=== PATIENT | female | born 1990 | race African-American/Black ===

== ENCOUNTER 2020-02-16 14:23 | Emergency (ER) | payer BC, SELFPAY ==
--- NOTE | ~2020-02-16 | CT_ITS ---
EXAMINATION: CT abdomen pelvis w con DATE: 02/16/2020 15:06 INDICATION: Generalized abdominal pain. TECHNIQUE: Computed tomography (CT) of the abdomen and pelvis was performed with 100 mL Omnipaque 350 intravenous contrast. Automated exposure control and iterative reconstruction technique were employe d. The dose-length product was 1527.55 mGy-cm. COMPARISON: None. FINDINGS: The visualized portions of the lung bases are clear without pneumonia or pleural effusion. The heart size is normal. No pericardial effusion. The liver, gallbladder, spleen, pancreas, adrenal glands, and kidneys are normal. There are no dilated loops of bowel. The appendix is normal. There ar e no pathologically enlarged lymph nodes. There is no free intraperitoneal fluid. There is mild thora columbar spondylosis. IMPRESSION: 1. No etiology for the patient's symptoms. Reviewed, dictated and finalized at location A.
[2020-02-16 14:27] VITALS: BP 101/76; PULSE 96; RESP 18; TEMP 36.6; O2SAT 100
--- NOTE | 2020-02-16 14:41 | ED.GENADULT ---
HPI - General Adult General Chief complaint: Abdominal Pain Stated complaint: abd pain Time Seen by Provider: 02/16/20 14:26 Source: patient History of Present Illness HPI narrative: Patient is a 30 y/o female complaining of intermittent right sided abdominal pain for 3-4 months. She states that her pain is sharp and rates it as 10/10. She was prescribed Miralax and Docusate, neither of which helped. Her pain radiates to left side sometimes. She has some nausea, but no vomiting or diarrhea. She has some diarrhea. Related Data Allergies Allergy/AdvReac Type Severity Reaction Status Date / Time aspirin Allergy Intermediate Itching Verified 02/16/20 14:25 acetaminophen Allergy Unknown Unknown Verified 02/16/20 14:25 Penicillins AdvReac Mild Unknown Verified 02/16/20 14:25 Review of Systems Constitutional: Constitutional: Denies chills, Denies fever(s), Denies headache(s) and Denies weakness Eyes: Eyes: Denies blurry vision ENT: Denies headache(s) and Denies neck pain Cardiovascular: Cardiovascular: Denies chest pain and Denies dyspnea Respiratory: Respiratory: Denies cough and Denies dyspnea Gastrointestinal: Gastrointestinal: Reports abdominal pain, Reports constipation, Denies diarrhea, Denies nausea and Denies vomiting Genitourinary: Genitourinary: Denies hematuria and Denies dysuria Musculoskeletal: Musculoskeletal: Denies back pain and Denies neck pain Neurologic: Denies headache(s) and Denies weakness [facility] Social History Social History Gender identity (if verbalized by the patient): Female Exam Const: General: no acute distress and well developed Orientation/consciousness: oriented to person, oriented to place, oriented to time and patient oriented x3 HENMT: Head: normocephalic Ears: external ears normal General nose exam: Normal external nose present Eyes: General: appearance normal, both eyes and all related structures Conjunctivae: conjunctivae normal Neck: Neck: normal visual inspection and full ROM Chest: Chest palpation & inspection: normal inspection of the chest and no tenderness Resp: Effort & Inspection: normal respiratory effort Auscultation: clear to auscultation bilaterally Cardio: Rate: regular rate Rhythm: regular rhythm GI: GI Palp: No abdominal tenderness and Yes Soft to palpation Skin: General skin exam: normal color and turgor normal Neuro: General: oriented to person, oriented to place, oriented to time and patient oriented x3 Cognition (Neuro): normal cognition Extrem: General: normal to inspection, full ROM and no pedal edema Psych: Appearance: grossly normal Mental Status: mental status grossly normal Affect: normal affect Course Vital Signs Vital signs: Vital Signs Temperature 36.6 C 02/16/20 14:27 Pulse Rate 96 02/16/20 14:27 Respiratory Rate 18 02/16/20 14:27 Blood Pressure 101/76 02/16/20 14:27 Pulse Oximetry 100 02/16/20 14:27 Temperature 36.6 C 02/16/20 14:27 Pulse Rate 88 02/16/20 15:56 Respiratory Rate 18 02/16/20 15:56 Blood Pressure 140/94 H 02/16/20 15:56 Pulse Oximetry 98 02/16/20 15:56 Medical Decision Making Vital Signs Vital Signs: Vital Signs Temperature 36.6 C 02/16/20 14:27 Pulse Rate 96 02/16/20 14:27 Respiratory Rate 18 02/16/20 14:27 Blood Pressure 101/76 02/16/20 14:27 Pulse Oximetry 100 02/16/20 14:27 Temperature 36.6 C 02/16/20 14:27 Pulse Rate 88 02/16/20 15:56 Respiratory Rate 18 02/16/20 15:56 Blood Pressure 140/94 H 02/16/20 15:56 Pulse Oximetry 98 02/16/20 15:56 Lab Data Result diagrams: 02/16/20 14:45 02/16/20 15:00 Labs: Lab Results 02/16/20 02/16/20 02/16/20 Range/Units 14:37 14:45 14:45 WBC 4.9 (4.5-10.0) K/mm3 RBC 4.41 (4.2-5.4) M/mm3 Hgb 12.3 (12.0-15.0) g/dL Hct 38.1 (37.0-47.0) % MCV 86.4 (80-100) fl MCH 27.9 (26-34)
[2020-02-16 14:52] LABS: Add Urine Microscopic? YES; Appearance Urine Cloudy (Clear); Bacteria Urine Trace /hpf; Bilirubin Urine Negative (Negative); Blood Urine Negative (Negative); Color Urine Yellow (Yellow); Glucose Urine UA Negative (Negative); Ketones Urine Trace mg/dL (Negative); Leukocyte Esterase Ur 1+ LEU/UL (Negative); Mucus Urine Heavy /lpf; Nitrate Urine Negative (Negative); Protein Urine 2+ mg/dL (Negative); Specific Grav Ur 1.029 (1.001-1.035); Squamous Epithelial Cell Urine Many /hpf (Few)
[2020-02-16 14:52] LABS: Basophils Percent Auto 0.8 % (0.2-1.2); Eosinophils Absolute Auto 0.1 K/mm3 (0-0.3); Eosinophils Percent Auto 1.2 % (0-4.4); Hematocrit 38.1 % (37.0-47.0); Hemoglobin 12.3 g/dL (12.0-15.0); Immature Granulocyte Absolute 0.01 K/mm3 (0.00-0.031); Immature Granulocyte Percent A 0.2 % (0-0.5); Lymphocytes Absolute Auto 2.24 K/mm3 (0.9-3.2); Lymphocytes Percent Auto 46.1 % (18.3-44.2); Mean Corpuscular HGB Conc 32.3 g/dl (32-36); Mean Corpuscular Hemoglobin 27.9 pg (26-34); Mean Corpuscular Volume 86.4 fl (80-100); Mean Platelet Volume 11.1 fl (7.4-10.4); Monocytes Absolute Auto 0.4 K/mm3 (0.1-0.6); Monocytes Percent Auto 7.2 % (2.6-8.5); Neutrophils Absolute Auto 2.2 K/mm3 (1.3-6.7); Neutrophils Percent Auto 44.5 % (45.5-73.1); Platelet Count Result 276 k/mm3 (150-375); Red Blood Count 4.41 M/mm3 (4.2-5.4); Red Cell Distribution Width 13.3 % (11.5-14.5); White Blood Count 4.9 K/mm3 (4.5-10.0)
[2020-02-16 15:01] LABS: Estimated CRCL calculation 138 ml/min; Estimated Glomerular Filt Rate > 60
[2020-02-16 15:03] LABS: Alanine Aminotransferase 20 U/L (4-35); Albumin Level 3.9 g/dL (3.5-5.1); Alkaline Phosphatase 60 U/L (38-126); Anion Gap 6 mmol/L (8-16); Aspartate Amino Transferase 21 U/L (14-36); Bilirubin,Total 0.4 mg/dL (0.2-1.3); Blood Urea Nitrogen 8 mg/dL (7-17); Carbon Dioxide 29 mmol/L (22-30); Chloride 102 mmol/L (98-107); Estimated CRCL calculation 138 ml/min; Estimated Glomerular Filt Rate > 60; Glucose 104 mg/dL (65-105); Lipase 105 U/L (23-300); Potassium 3.2 mmol/L (3.4-5.0); Sodium 137 mmol/L (137-145)
[2020-02-16] MEDS: POTASSIUM CHLORIDE 20 MEQ TABLET PO (15:49)
[2020-02-16 15:56] VITALS: BP 140/94; PULSE 88; RESP 18; O2SAT 98
== END 2020-02-16 16:37 | disposition home or self-care (01) ==
PROVIDERS: Emergency Medicine; Emergency Provider Emergency Medicine; PCP Nurse Practitioner Gerontology
DX: R10.84 Generalized abdominal pain (principal)
CPT/HCPCS: 36415; 74177; 80053; 81001; 81025; 83690; 85025; 99284; A9270; Q9967

== ENCOUNTER 2020-02-21 22:16 | Emergency (ER) | payer BC, SELFPAY ==
[2020-02-21 22:17] VITALS: BP 145/86; PULSE 80; RESP 20; TEMP 36.7; O2SAT 100
[2020-02-21 22:49] LABS: Basophils Percent Auto 0.6 % (0.2-1.2); Eosinophils Absolute Auto 0.1 K/mm3 (0-0.3); Eosinophils Percent Auto 1.4 % (0-4.4); Hematocrit 37.7 % (37.0-47.0); Hemoglobin 12.2 g/dL (12.0-15.0); Immature Granulocyte Absolute 0.01 K/mm3 (0.00-0.031); Immature Granulocyte Percent A 0.2 % (0-0.5); Lymphocytes Absolute Auto 1.84 K/mm3 (0.9-3.2); Lymphocytes Percent Auto 37.8 % (18.3-44.2); Mean Corpuscular HGB Conc 32.4 g/dl (32-36); Mean Corpuscular Hemoglobin 27.9 pg (26-34); Mean Corpuscular Volume 86.1 fl (80-100); Mean Platelet Volume 11.7 fl (7.4-10.4); Monocytes Absolute Auto 0.4 K/mm3 (0.1-0.6); Monocytes Percent Auto 7.4 % (2.6-8.5); Neutrophils Absolute Auto 2.6 K/mm3 (1.3-6.7); Neutrophils Percent Auto 52.6 % (45.5-73.1); Platelet Count Result 277 k/mm3 (150-375); Red Blood Count 4.38 M/mm3 (4.2-5.4); Red Cell Distribution Width 13.4 % (11.5-14.5); White Blood Count 4.9 K/mm3 (4.5-10.0)
[2020-02-21 22:56] LABS: Add Urine Microscopic? YES; Appearance Urine Cloudy (Clear); Bacteria Urine Trace /hpf; Bilirubin Urine 2+ (Negative); Blood Urine Negative (Negative); Color Urine Amber (Yellow); Glucose Urine UA Negative (Negative); Ketones Urine 1+ mg/dL (Negative); Leukocyte Esterase Ur 2+ LEU/UL (Negative); Mucus Urine Heavy /lpf; Nitrate Urine Negative (Negative); Protein Urine 2+ mg/dL (Negative); RBC Urine 0-2 /hpf (0-2); Squamous Epithelial Cell Urine Many /hpf (Few)
--- NOTE | 2020-02-21 22:56 | ED.GENADULT ---
HPI - General Adult General Chief complaint: Unspecified Stated complaint: scratchy throat Time Seen by Provider: 02/21/20 22:24 Source: patient Mode of arrival: ambulatory Limitations: no limitations History of Present Illness HPI narrative: 29 years old -[place]i female, morbidly obese presents with scratchy throat, right pelvic pain, weird taste in the mouth. Started 2 days ago. Patient denies any fever, chills, nausea, vomiting, headache, body ache, diarrhea, vaginal bleeding or discharge, or urinary symptoms. Patient also denies any vaginal bleeding or discharge. Patient sexually active, last menstrual period January 17. Patient reports a history of anxiety and depression, does not work, have a child. Denies smoking, drinking or using drugs. Patient denies history of abdominal surgery. Related Data Allergies Allergy/AdvReac Type Severity Reaction Status Date / Time aspirin Allergy Intermediate Itching Verified 02/21/20 22:20 acetaminophen Allergy Unknown Unknown Verified 02/21/20 22:20 Penicillins AdvReac Mild Unknown Verified 02/21/20 22:20 Review of Systems Review of Systems: Narrative: CONSTITUTIONAL: Denies fever, chills, or sweats. EYES: Denies visual changes, redness, or discharge. ENT: Denies rhinorrhea, congestion, sore throat, or otalgia. CARDIOVASCULAR: Denies chest pain, palpitations, or edema. RESPIRATORY: Denies cough or dyspnea. GASTROINTESTINAL: Denies abdominal pain, nausea, vomiting, or diarrhea. GENITOURINARY: Denies dysuria or hematuria. SKIN: Denies rash or itching. MUSCULOSKELETAL: Denies back pain, joint pain, or myalgia. NEUROLOGIC: Denies headache, numbness, or weakness. PSYCHIATRIC: Denies anxiety or depression. PMFSH Past Medical History Medical History (Updated 02/21/20 @ 23:17 by Bari Delgado MD) Depression Social History Social History (Updated 02/21/20 @ 22:59 by Bari Delgado MD) Second hand tobacco smoke exposure: No Gender identity (if verbalized by the patient): Female Exam Narrative: Exam Narrative: General appearance: Well-developed, well-nourished. , using her smart phone, does not look in pain or distress. No family member at the bedside Skin: Normal color Head: Normocephalic, nontraumatic Eyes: Clear conjunctiva ENT: Oropharynx normal, ears normal, nose normal Neck: Supple, nontender Chest and respiratory: Airway patent, no respiratory distress, no accessory muscle use Heart: Regular rate/rhythm Abdomen: Soft, mild tenderness right lower quadrant, no guarding or rebound r, no organomegaly, quiet bowel sounds Vascular: Normal peripheral pulses, normal capillary refill. Musculoskeletal: Normal range of motion, nontender back Neurologic: Alert and oriented ?3, GTA is normal as tested, no gross motor deficit Course Course Emergency Course: Stable Vital Signs Vital signs: Vital Signs Temperature 36.7 C 02/21/20 22:17 Pulse Rate 80 02/21/20 22:17 Respiratory Rate 02/21/20 22:17 Blood Pressure 145/86 H 02/21/20 22:17 Pulse Oximetry 100 02/21/20 22:17 Temperature 36.7 C 02/21/20 22:17 Pulse Rate 80 02/21/20 22:17 Respiratory Rate 02/21/20 22:17 Blood Pressure 145/86 H 02/21/20 22:17 Pulse Oximetry 100 02/21/20 22:17 Medical Decision Making [facility] Narrative Medical decision making narrative: Patient presents with scratchy throat, abdominal pain and weird taste in the mouth. Patient symptoms are not specific. The plan to get labs, UA, rapid strep,. Further plan to follow. Patient denies exposure to anybody with known COVID-19. Blood work-up and urine analysis showed no acute abnormality. Anxiety, depression are high likely underlying cause
[2020-02-21 23:01] LABS: Specific Grav Ur 1.035 (1.001-1.035)
[2020-02-21 23:02] LABS: Alanine Aminotransferase 21 U/L (4-35); Alkaline Phosphatase 56 U/L (38-126); Anion Gap 9 mmol/L (8-16); Aspartate Amino Transferase 30 U/L (14-36); Bilirubin,Total 0.6 mg/dL (0.2-1.3); Blood Urea Nitrogen 10 mg/dL (7-17); Calcium 9.2 mg/dL (8.4-10.2); Carbon Dioxide 26 mmol/L (22-30); Chloride 103 mmol/L (98-107); Estimated CRCL calculation 138 ml/min; Estimated Glomerular Filt Rate > 60; Glucose 91 mg/dL (65-105); Sodium 138 mmol/L (137-145)
[2020-02-21 23:28] VITALS: BP 134/72; PULSE 78; RESP 17; O2SAT 100
== END 2020-02-21 23:29 | disposition home or self-care (01) ==
PROVIDERS: Emergency Provider Emergency Medicine; PCP Physician Assistant
DX: R10.31 Right lower quadrant pain (principal); F32.9 Major depressive disorder, single episode, unspecified
CPT/HCPCS: 80053; 81001; 81025; 85025; 87081; 87086; 87088; 87880; 99283

== ENCOUNTER 2020-08-27 15:55 | Emergency (ER) | payer BC, SELFPAY ==
--- NOTE | ~2020-08-27 | XR_ITS ---
EXAMINATION: XR chest 2V EXAM DATE: 08/27/2020 16:55 INDICATION: Dizziness, headaches. Symptoms worse today. TECHNIQUE: Frontal and lateral projections of the chest obtained and reviewed. Comparison is made to prior examination from 05/05/2016. FINDINGS: The lungs are clear. There are no pleural effusions. The cardiomediastinal silhouette is within normal limits. There is no pneumothorax suspected. The bones and soft tissues are unremarkab le. IMPRESSION: No acute cardiopulmonary findings. Reviewed, dictated and finalized at location A.
--- NOTE | 2020-08-27 16:15 | ECG_ITS ---
Measurements Intervals [place] Rate: 82 P: 32 NE: 157 QRS: 47 QRSD: 86 T: 16 QT: 363 QTc: 424 Interpretive Statements SINUS RHYTHM BORDERLINE T WAVE ABNORMALITY- ANTERIOR LEADS BASELINE ARTIFACT- I, II, AVR BORDERLINE ECG Electronically Signed On 08-27-2020 17:20:01 CDT by Lars Singh D.O.
--- NOTE | 2020-08-27 16:23 | ED.DIZZY ---
HPI - Dizziness General Chief Complaint: Dizziness Stated Complaint: Dizzy, Headache Time Seen by Provider: 08/27/20 16:09 Source: patient Mode of arrival: ambulatory Limitations: no limitations History of Present Illness HPI Narrative: This is a 29-year-old female that presents to the emergency department for episodes of dizziness x 5 days. Reports it as the room is spinning. She had an episode over the weekend. She also does feel mildly dizzy today which prompted her to be seen. She has been having trouble with headaches as well. She has not taken anything for her symptoms. Denies fever, stiff neck, chest pain, shortness of breath, lower extremity edema, vision changes, vomiting, numbness, or weakness. Related Data Allergies Allergy/AdvReac Type Severity Reaction Status Date / Time aspirin Allergy Intermediate Itching Verified 02/21/20 22:20 acetaminophen Allergy Unknown Unknown Verified 02/21/20 22:20 Penicillins AdvReac Mild Unknown Verified 02/21/20 22:20 Review of Systems Review of Systems: All systems reviewed & are unremarkable except as noted in HPI and below Constitutional: Constitutional: Denies fever(s) Eyes: Eyes: Denies change in vision ENT: Reports dizziness and Denies nasal congestion Cardiovascular: Cardiovascular: Denies chest pain Respiratory: Respiratory: Denies cough and Denies dyspnea Gastrointestinal: Gastrointestinal: Denies vomiting Neurologic: Reports headache(s), Denies focal weakness and Denies numbness PMFSH Past Medical History Medical History (Updated 08/27/20 @ 17:59 by Xiomara Richard PA-C) Depression Social History Social History (Updated 08/27/20 @ 16:28 by Xiomara Richard PA-C) Second hand tobacco smoke exposure: No Substance use: never Gender identity (if verbalized by the patient): Female Exam Const: General: healthy appearing and no acute distress Nutritional Appearance: well nourished HENMT: Ears: TM's normal bilaterally Mouth: Yes moist mucous membranes Eyes: Pupils: Equal, round and reactive pupils present Resp: Auscultation: clear to auscultation bilaterally Cardio: Rate: regular rate Rhythm: regular rhythm Heart sounds: no murmurs Skin: General skin exam: normal color Rashes: no rashes Neuro: General: patient oriented x3, no focal motor deficits and CN's II-XI intact bilaterally Other: Normal [id number] Extrem: General: no pedal edema Other: Strength equal in bilateral upper and lower extremities (5/5) Psych: Affect: normal affect Thought content: Yes Normal thought content present Course Vital Signs Vital signs: Vital Signs Temperature 97.1 F L 08/27/20 16:26 Pulse Rate 93 08/27/20 16:26 Respiratory Rate 17 08/27/20 16:26 Blood Pressure 145/94 H 08/27/20 16:26 Pulse Oximetry 99 08/27/20 16:26 Temperature 97.1 F L 08/27/20 16:26 Pulse Rate 93 08/27/20 16:26 Respiratory Rate 17 08/27/20 16:26 Blood Pressure 145/94 H 08/27/20 16:26 Pulse Oximetry 99 08/27/20 16:26 MDM - Dizziness MDM Narrative Medical decision making narrative: Patient presents to the emergency department for headache and and dizziness. She is afebrile and nontoxic-appearing. She is neurologically intact. CBC with mild normocytic anemia with hemoglobin of 11.2. Metabolic panel without concerning findings. UA without evidence of infection. Bedside test is negative. Chest x-ray without acute findings. EKG without concerning changes. Patient reports improvement with IV fluids, reglan and meclizine. She is stable and felt appropriate for further outpatient evaluation. She was given warnings to return to the ER Lab Data Attestation: I reviewed the patient's lab results. Result diagrams: 08/27/20 16:31 08/27/20 16:31 Labs: Lab Results 08/27/20 08/27/20 08/27/20 Range/Units 16:31 16:31 17:05 WBC 5.7 (4.5-10.0) K/mm3 RBC 4.05 L (4.2-5.4) M/mm3 Hgb 11.2 L (12.0
[2020-08-27 16:26] VITALS: BP 145/94; PULSE 93; RESP 17; TEMP 36.2; O2SAT 99
[2020-08-27 16:37] LABS: Basophils Percent Auto 0.3 % (0.2-1.2); Eosinophils Absolute Auto 0.1 K/mm3 (0-0.3); Eosinophils Percent Auto 1.2 % (0-4.4); Hematocrit 35.3 % (37.0-47.0); Hemoglobin 11.2 g/dL (12.0-15.0); Immature Granulocyte Absolute 0.01 K/mm3 (0.00-0.031); Immature Granulocyte Percent A 0.2 % (0-0.5); Lymphocytes Absolute Auto 2.17 K/mm3 (0.9-3.2); Lymphocytes Percent Auto 37.9 % (18.3-44.2); Mean Corpuscular HGB Conc 31.7 g/dl (32-36); Mean Corpuscular Hemoglobin 27.7 pg (26-34); Mean Corpuscular Volume 87.2 fl (80-100); Mean Platelet Volume 10.1 fl (7.4-10.4); Monocytes Absolute Auto 0.4 K/mm3 (0.1-0.6); Monocytes Percent Auto 7.3 % (2.6-8.5); Neutrophils Percent Auto 53.1 % (45.5-73.1); Platelet Count Result 298 k/mm3 (150-375); Red Blood Count 4.05 M/mm3 (4.2-5.4); Red Cell Distribution Width 13.3 % (11.5-14.5); White Blood Count 5.7 K/mm3 (4.5-10.0)
[2020-08-27 16:49] LABS: Alanine Aminotransferase 14 U/L (4-35); Alkaline Phosphatase 93 U/L (38-126); Anion Gap 4 mmol/L (8-16); Aspartate Amino Transferase 20 U/L (14-36); Bilirubin,Total 0.1 mg/dL (0.2-1.3); Blood Urea Nitrogen 10 mg/dL (7-17); Calcium 8.6 mg/dL (8.4-10.2); Carbon Dioxide 30 mmol/L (22-30); Chloride 105 mmol/L (98-107); Estimated CRCL calculation 138 ml/min; Estimated Glomerular Filt Rate > 60; Glucose 100 mg/dL (65-105); Sodium 139 mmol/L (137-145)
[2020-08-27] MEDS: METOCLOPRAMIDE HCL INJ 10 MG/2 ML VIAL IV PUSH (17:04)
[2020-08-27] MEDS: diphenhydrAMINE HCl INJ 50 MG/ML VIAL 25 MG IV PUSH (17:04)
[2020-08-27] MEDS: SODIUM CHLORIDE 0.9% IV 1,000 ML 999 ML IV CONT (17:04)
[2020-08-27] MEDS: MECLIZINE HCL 25 MG TABLET PO (17:04)
[2020-08-27 17:14] LABS: Add Urine Microscopic? NO; Appearance Urine Clear (Clear); Bilirubin Urine Negative (Negative); Blood Urine Negative (Negative); Color Urine Yellow (Yellow); Glucose Urine UA Negative (Negative); Ketones Urine Negative (Negative); Leukocyte Esterase Ur Negative LEU/UL (Negative); Nitrate Urine Negative (Negative); Protein Urine Negative (Negative); Specific Grav Ur 1.018 (1.001-1.035); Urobilinogen Urine Negative mg/dL (<2.0)
[2020-08-27 18:17] VITALS: BP 132/68; PULSE 78; RESP 18; O2SAT 99
== END 2020-08-27 18:19 | disposition home or self-care (01) ==
PROVIDERS: Physician Assistant; Emergency Provider Emergency Medicine; PCP Physician Assistant
DX: R51.9 Headache, unspecified (principal); R94.31 Abnormal electrocardiogram [ECG] [EKG]
CPT/HCPCS: 36415; 71046; 80053; 81003; 81025; 85025; 93005; 96361; 96374; 96375; 99284; A9270; J1200; J2765; J7030

== ENCOUNTER 2020-11-03 13:22 | Emergency (ER) | payer BC, SELFPAY ==
[2020-11-03] VITALS (14 sets, daily range): BP systolic 116–135; BP diastolic 71–94; PULSE 70–86; RESP 12–20; TEMP 36.4; O2SAT 100
--- NOTE | ~2020-11-03 | XR_ITS ---
EXAMINATION: XR chest 2V EXAM DATE: 11/03/2020 13:57 INDICATION: Left-sided chest pain. TECHNIQUE: Frontal and lateral projections of the chest obtained and reviewed. Comparison is made to prior examination from 08/27/2020. FINDINGS: The lungs are clear. There are no pleural effusions. The cardiomediastinal silhouette is within normal limits. There is no pneumothorax suspected. The bones and soft tissues are unremarkab le. IMPRESSION: Normal chest x-ray exam. Reviewed, dictated and finalized at location A. IMPRESSION: Normal chest x-ray exam.
--- NOTE | 2020-11-03 13:26 | ECG_ITS ---
Measurements Intervals [place] Rate: 90 P: 31 [place]: 151 QRS: 49 QRSD: 86 T: -13 QT: 358 QTc: 440 Interpretive Statements SINUS RHYTHM NONSPECIFIC ST & T-WAVE ABNORMALITY- ANTEROLAT/INF LEADS BORDERLINE ECG Electronically Signed On 11-03-2020 19:07:16 CDT by Lars Singh D.O.
[2020-11-03 13:44] LABS: Basophils Percent Auto 0.4 % (0.2-1.2); Eosinophils Absolute Auto 0.1 K/mm3 (0-0.3); Eosinophils Percent Auto 1.2 % (0-4.4); Hemoglobin 11.8 g/dL (12.0-15.0); Immature Granulocyte Absolute 0.01 K/mm3 (0.00-0.031); Immature Granulocyte Percent A 0.2 % (0-0.5); Lymphocytes Absolute Auto 2.25 K/mm3 (0.9-3.2); Lymphocytes Percent Auto 45.7 % (18.3-44.2); Mean Corpuscular HGB Conc 31.1 g/dl (32-36); Mean Corpuscular Hemoglobin 27.3 pg (26-34); Mean Corpuscular Volume 87.8 fl (80-100); Mean Platelet Volume 10.1 fl (7.4-10.4); Monocytes Absolute Auto 0.4 K/mm3 (0.1-0.6); Monocytes Percent Auto 8.3 % (2.6-8.5); Neutrophils Absolute Auto 2.2 K/mm3 (1.3-6.7); Neutrophils Percent Auto 44.2 % (45.5-73.1); Platelet Count Result 301 k/mm3 (150-375); Red Blood Count 4.33 M/mm3 (4.2-5.4); Red Cell Distribution Width 13.5 % (11.5-14.5); White Blood Count 4.9 K/mm3 (4.5-10.0)
[2020-11-03 13:57] LABS: INR 0.9; Prothrombin Time 12.5 Seconds (11.1-14.7)
[2020-11-03 13:58] LABS: Partial Thromboplastin Time 30.3 SECONDS (22.3-36.8)
[2020-11-03 14:00] LABS: Anion Gap 6 mmol/L (8-16); Blood Urea Nitrogen 11 mg/dL (7-17); Calcium 9.4 mg/dL (8.4-10.2); Carbon Dioxide 28 mmol/L (22-30); Chloride 108 mmol/L (98-107); Estimated CRCL calculation 163 ml/min; Estimated Glomerular Filt Rate > 60; Glucose 89 mg/dL (65-105); Potassium 3.9 mmol/L (3.4-5.0); Sodium 142 mmol/L (137-145)
[2020-11-03 14:12] LABS: Troponin I < 0.012 ng/mL (0.000-0.034)
--- NOTE | 2020-11-03 14:29 | ED.CHESTPAIN ---
HPI - Chest Pain General Chief Complaint: Chest Pain Stated Complaint: Chest Pain,numbness l hand Time Seen by Provider: 11/03/20 13:43 Source: patient, family and RN notes reviewed Mode of arrival: ambulatory Limitations: no limitations History of Present Illness HPI narrative: Patient is a 29-year-old female who presents with left-sided chest pain that began today just prior to arrival by 30 minutes noting a sharp stabbing pain that was coming and going patient denies any similar occurrence in the past notes yesterday she had felt fine did not take anything for her symptoms. On arrival patient notes no discomfort and is resting comfortably in the room. Patient denies any cardiopulmonary disease or history Related Data Home Medications Medication Instructions Recorded Confirmed ferrous sulfate 325 mg (65 mg 325 mg PO DAILY 09/24/20 iron) tablet Allergies Allergy/AdvReac Type Severity Reaction Status Date / Time aspirin Allergy Intermediate Itching Verified 09/24/20 13:59 acetaminophen Allergy Unknown Unknown Verified 09/24/20 13:59 Penicillins AdvReac Mild Unknown Verified 09/24/20 13:59 Review of Systems Review of Systems: All systems reviewed & are unremarkable except as noted in HPI and below PMFSH Past Medical History Medical History (Updated 11/03/20 @ 16:51 by Khris Zhao PA-C) Depression Obesity Surgical History Surgical History S/P tonsillectomy Family History Family History Father Diabetes mellitus Hypertension Mother Asthma Depression Heart disease Social History Social History Smoking status: Never smoker Second hand tobacco smoke exposure: No Substance use: never Gender identity (if verbalized by the patient): Female Exam Narrative: Exam Narrative: GENERAL: Well-appearing, obese, and in no acute distress. HEAD: Normocephalic, atraumatic. EYES: PERRLA and EOMI. ENT: Nares clear, no rhinorrhea or epistaxis. Mucous membranes moist. CHEST: Clear to auscultation. No respiratory distress. No wheezes rales or rhonchi HEART: Regular rate and rhythm. No murmur heard. Normal peripheral pulses. ABDOMEN: Soft, nontender, nondistended EXTREMITIES: Normal range of motion. No edema. SKIN: Warm, dry, no rash. NEURO: No focal deficits. Alert and oriented x3. PSYCH: Normal mood and affect. Course Course Emergency Course: Patient in the room at this time no distress no high risk changes low risk chest pain score will be discharged home with further risk ratification on outpatient basis patient resting comfortably in no distress and agrees with this plan Vital Signs Vital signs: Vital Signs Temperature 97.6 F 11/03/20 13:31 Pulse Rate 86 11/03/20 13:31 Respiratory Rate 18 11/03/20 13:31 Blood Pressure 135/94 H 11/03/20 13:31 Pulse Oximetry 100 11/03/20 13:31 Temperature 97.6 F 11/03/20 13:31 Pulse Rate 70 11/03/20 15:10 Respiratory Rate 18 11/03/20 14:31 Blood Pressure 119/76 11/03/20 14:31 Pulse Oximetry 100 11/03/20 14:31 MDM - Chest Pain MDM Narrative Medical decision making narrative: Patients EKGs and labs are without significant high risk changes. Cardiac risk Factors were reviewed. Patient is felt likely to be low risk for ACS and reasonable for further risk stratification testing as an outpatient. Pain was not sudden or maximal in onset without tearing or ripping. quality. No other signs or symptoms to suggest aortic dissection. A low-risk Wells criteria is noted. PE is felt to be unlikely. No pneumonia or URI symptoms were seen on evaluation today. Patient is felt to b reasonable for continued evaluation as an outpatient. Lab Data Result diagrams: 11/03/20 13:38 11/03/20 13:38 Labs: Lab Results 11/03/20 11/03/20
[2020-11-03 16:50] LABS: Troponin I < 0.012 ng/mL (0.000-0.034)
== END 2020-11-03 17:04 | disposition home or self-care (01) ==
PROVIDERS: Emergency Provider Emergency Medicine; PCP Physician Assistant
DX: R07.9 Chest pain, unspecified (principal); E66.9 Obesity, unspecified; Z68.43 Body mass index [BMI] 50.0-59.9, adult; R94.31 Abnormal electrocardiogram [ECG] [EKG]
CPT/HCPCS: 36415; 71046; 80048; 84484; 85025; 85610; 85730; 93005; 99284

== ENCOUNTER 2021-02-12 10:42 | Outpatient (CLI) | payer BC, SELFPAY ==
[2021-02-12 12:18] LABS: HIV 1/2 Ab P24 Ag Result Negative (Negative)
[2021-02-12 12:49] LABS: Hepatitis C Virus Antibody Negative (Negative)
[2021-02-15 10:08] LABS: Rapid Plasma Reagin Non-Reactive (NonReactive)
[2021-02-17 03:37] LABS: Hepatitis Be Antigen Nonreactive
[2021-02-18 14:37] LABS: HSV 1 IgM Screen Negative (Negative); HSV 2 IgM Screen Negative (Negative)
== END 2021-02-12 10:43 | disposition home or self-care (01) ==
PROVIDERS: PCP Physician Assistant; Visit Provider Obstetrics & Gynecology
DX: Z11.3 Encounter for screening for infections with a predominantly sexual mode of transmission (principal)
CPT/HCPCS: 36415; 86592; 86695; 86696; 86703; 86803; 87350; G0432

== ENCOUNTER 2021-03-24 17:43 | Emergency (ER) | payer BC, SELFPAY ==
[2021-03-24 17:55] VITALS: BP 129/87; PULSE 83; RESP 16; TEMP 36.4; O2SAT 99
--- NOTE | 2021-03-24 18:35 | ED.GENADULT ---
HPI - General Adult General Chief complaint: Upper Respiratory Infection Stated complaint: congestion Source: patient Mode of arrival: ambulatory Limitations: no limitations History of Present Illness HPI narrative: Patient is a 30-year-old -[place] female presents to the [facility] via POV for evaluation of symptoms that began this morning. Additionally, she reports rhinorrhea, sore throat, and bilateral ear pain. Denies taking OTC meds for symptoms nothing improves or worsen symptoms. Patient reports that her is also here to be seen with similar signs and symptoms. She denies being fully vaccinated against Covid. She is requesting documentation for work absence. Related Data Home Medications Medication Instructions Recorded Confirmed No Home Medications 03/24/21 03/24/21 Allergies Allergy/AdvReac Type Severity Reaction Status Date / Time aspirin Allergy Intermediate Itching Verified 03/24/21 18:07 acetaminophen Allergy Unknown Unknown Verified 03/24/21 18:07 Penicillins AdvReac Mild Unknown Verified 03/24/21 18:07 feminine pads AdvReac Itching, Uncoded 03/24/21 18:07 redness, burning Review of Systems Review of Systems: Pertinent negatives: fever, chills, poor p.o. intake, myalgias, flu-like symptoms, ear drainage, tinnitus, vertigo, hearing difficulty, sinus trouble, headache, nasal congestion, lymphadenopathy, dizziness, LOC, inability to swallow, drooling, hoarseness, halitosis, abdominal pain, nausea, vomiting, diarrhea, cough, wheezing, sob, chest pain, heart murmurs, and heart palpations. PMFSH Past Medical History Medical History Depression HSV (herpes simplex virus) infection Type 1 Obesity Surgical History Surgical History S/P tonsillectomy Family History Family History Father Diabetes mellitus Hypertension Mother Asthma Depression Heart disease Social History Social History Smoking status: Never smoker Tobacco type: cigarettes Second hand tobacco smoke exposure: No Alcohol intake: current Alcohol use details: maybe occasional Substance use: never Gender identity (if verbalized by the patient): Female Comments I have reviewed and agree with the patient's past medical, surgical, social, and family hx as documented by the RN. There is no relevant family history pertinent to the presenting complaint. Exam Narrative: GENERAL: Well-appearing, well-nourished, and in no acute distress. HEAD: Normocephalic, atraumatic. No sinus tenderness or facial swelling appreciated. EYES: PERRLA and EOMI. No evidence of erythema, swelling, or drainage. ENT: Bilateral external ears and ear canals normal. Bilateral TMs are normal.No TM perforation. Nares clear, no rhinorrhea or epistaxis. Bilateral turbinates without erythema/ swelling. Mucous membranes moist and pink. Uvula is midline without erythema and swelling. Subtle erythema noted to bilateral tonsils. No evidence of petechial rash, cobblestoning, lesions, ulcers, swelling, exudates, peritonsillar abscess, tenting, or drooling. Breath odor and voice normal. NECK: Supple. No Lymphadenopathy or nuchal rigidity appreciated. CHEST: Bilateral lung cason are clear to auscultation. No respiratory distress. No evidence of cough or pleuritic cp upon examination. HEART: Regular rate and rhythm. No murmur, gallop, or rub heard. EXTREMITIES: Normal range of motion. No edema. SKIN: Warm, dry, no rash. NEURO: No focal deficits. Alert and oriented x3. Course Vital Signs Vital signs: Vital Signs Temperature 97.6 F 03/24/21 17:55 Pulse Rate 83 03/24/21 17:55 Respiratory Rate 16 03/24/21 17:55 Blood Pressure 129/87 03/24/21 17:55 Pulse Oximetry 99 03/24/21 17:5
== END 2021-03-24 18:45 | disposition home or self-care (01) ==
PROVIDERS: Emergency Provider Nurse Practitioner Family; PCP Physician Assistant
DX: J06.9 Acute upper respiratory infection, unspecified (principal); E66.9 Obesity, unspecified; Z68.42 Body mass index [BMI] 45.0-49.9, adult
CPT/HCPCS: 87081; 87880; 99213; G0463

== ENCOUNTER 2021-04-10 13:52 | Emergency (ER) | payer BC, SELFPAY ==
[2021-04-10 13:54] VITALS: BP 137/94; PULSE 85; RESP 16; TEMP 36.4; O2SAT 100
--- NOTE | 2021-04-10 14:33 | ED.DENTAL ---
HPI - Dental/Oral General Chief complaint: Dental/Oral Stated complaint: wisdom tooth pain Time Seen by Provider: 04/10/21 14:13 Source: patient Mode of arrival: ambulatory Limitations: no limitations History of Present Illness HPI Narrative: Patient presents for evaluation of right lower dental pain since yesterday. She has a history of recurrent pain in the affected area. She states that insurance problems have prevented her from pursuing a long-term solution for this. She states her current pain is 15 on a scale of 1-10, throbbing, without radicular component. No fever, chills, nausea, vomiting. She tried taking ibuprofen and gargling with salt water. Neither were extremely helpful. Last menstrual period yesterday. She has not been sexually active since that time. No additional complaints or concerns Related Data Allergies Allergy/AdvReac Type Severity Reaction Status Date / Time aspirin Allergy Intermediate Itching Verified 03/24/21 18:07 acetaminophen Allergy Unknown Unknown Verified 03/24/21 18:07 Penicillins AdvReac Mild Unknown Verified 03/24/21 18:07 feminine pads AdvReac Itching, Uncoded 03/24/21 18:07 redness, burning Review of Systems Review of Systems: CONSTITUTIONAL: Denies fever, chills, or sweats. EYES: Denies visual changes, redness, or discharge. ENT: Reports right lower dental pain. Denies rhinorrhea, congestion, sore throat, or otalgia. CARDIOVASCULAR: Denies chest pain, palpitations, or edema. RESPIRATORY: Denies cough or dyspnea. GASTROINTESTINAL: Denies abdominal pain, nausea, vomiting, or diarrhea. GENITOURINARY: Denies dysuria or hematuria. SKIN: Denies rash or itching. MUSCULOSKELETAL: Denies back pain, joint pain, or myalgia. NEUROLOGIC: Denies headache, numbness, dizziness, or weakness. PSYCHIATRIC: Denies anxiety or depression. [facility] Past Medical History Medical History (Updated 04/10/21 @ 14:39 by Gulshan Yan, CYNTHIA, ) Bronchitis Depression H/O drainage of abscess HSV (herpes simplex virus) infection Type 1 Obesity Surgical History Surgical History S/P tonsillectomy Family History Family History Father Diabetes mellitus Hypertension Mother Asthma Depression Heart disease Social History Social History Smoking status: Former smoker Tobacco type: cigarettes Second hand tobacco smoke exposure: No Alcohol intake: current Alcohol use details: maybe occasional Substance use: never Living arrangements: with family Gender identity (if verbalized by the patient): Female Sexual Orientation (if Verbalized by the Patient): Straight or Heterosexual Spiritual care concerns: No Exam Narrative: GENERAL: Well-appearing, well-nourished, and in no acute distress. HEAD: Normocephalic, atraumatic. EYES: PERRLA and EOMI. ENT: Right lower molar is fractured. There is no visible or palpable abscess. Nares clear, no rhinorrhea or epistaxis. Mucous membranes moist. Oropharynx without tonsillar hypertrophy exudate or other lesions. Bilateral TMs pearly tariq nonbulging NECK: Supple. No adenopathy or masses. No carotid bruits or JVD CHEST: Clear to auscultation. No respiratory distress. No wheezes rales or rhonchi HEART: Regular rate and rhythm. No murmur heard. Normal peripheral pulses. ABDOMEN: Soft, nontender, nondistended, normal active bowel sounds. EXTREMITIES: Normal range of motion. No edema. SKIN: Warm, dry, no rash. NEURO: No focal deficits. Alert and oriented x3. PSYCH: Normal mood and affect. Course Course Emergency Course: This is a 30-year-old female who presented with one day history of right lower dental pain. On exam she has a dental fracture without visible or palpable abscess. In the past she has not tolerated penicillins. Therefore we will
== END 2021-04-10 14:51 | disposition home or self-care (01) ==
PROVIDERS: Emergency Provider Nurse Practitioner; PCP Physician Assistant
DX: S02.5XXA Fracture of tooth (traumatic), initial encounter for closed fracture (principal); F32.A Depression, unspecified; E66.9 Obesity, unspecified; Z87.891 Personal history of nicotine dependence; Y33.XXXA Other specified events, undetermined intent, initial encounter
CPT/HCPCS: 99283

== ENCOUNTER 2021-08-08 23:45 | Emergency (ER) | payer BC, SELFPAY ==
[2021-08-08 23:53] VITALS: BP 149/89; PULSE 84; RESP 20; TEMP 36.3; O2SAT 100
--- NOTE | 2021-08-09 00:15 | ED.EYEPROB ---
HPI - Eye Problem General Chief complaint: Eye Problems Stated complaint: left eye irritation Time Seen by Provider: 08/09/21 00:05 History of Present Illness HPI Narrative: 30-year-old female presenting to emergency room with complaints of left eye irritation. Patient states she woke up this morning with a grainy feeling in her eye. Associated with blurred vision. Denies wearing contacts or glasses. Related Data Allergies Allergy/AdvReac Type Severity Reaction Status Date / Time aspirin Allergy Intermediate Itching Verified 08/08/21 23:46 acetaminophen Allergy Unknown Unknown Verified 08/08/21 23:46 Penicillins AdvReac Mild Unknown Verified 08/08/21 23:46 feminine pads AdvReac Itching, Uncoded 08/08/21 23:46 redness, burning Review of Systems Review of Systems: CONSTITUTIONAL: Denies fever, chills, or sweats. EYES: Reports clear drainage left eye. Reports blurred vision left eye ENT: Denies rhinorrhea, congestion, sore throat, or otalgia. CARDIOVASCULAR: Denies chest pain, palpitations, or edema. RESPIRATORY: Denies cough or dyspnea. GASTROINTESTINAL: Denies abdominal pain, nausea, vomiting, or diarrhea. GENITOURINARY: Denies dysuria or hematuria. SKIN: Denies rash or itching. MUSCULOSKELETAL: Denies back pain, joint pain, or myalgia. NEUROLOGIC: Denies headache, numbness, dizziness, or weakness. PSYCHIATRIC: Denies anxiety or depression. [facility] Past Medical History Medical History Bronchitis Depression H/O drainage of abscess HSV (herpes simplex virus) infection Type 1 Obesity Surgical History Surgical History S/P tonsillectomy Family History Family History Father Diabetes mellitus Hypertension Mother Asthma Depression Heart disease Social History Social History Smoking status: Former smoker Tobacco type: cigarettes Second hand tobacco smoke exposure: No Alcohol intake: current Alcohol use details: maybe occasional Substance use: never Gender identity (if verbalized by the patient): Female Sexual Orientation (if Verbalized by the Patient): Straight or Heterosexual Spiritual care concerns: No Exam Narrative: GENERAL: Well-appearing, well-nourished, and in no acute distress. HEAD: Normocephalic, atraumatic. EYES: PERRLA and EOMI. ENT: Nares clear, no rhinorrhea or epistaxis. Mucous membranes moist. Oropharynx without tonsillar hypertrophy exudate or other lesions. Bilateral TMs pearly tariq nonbulging NECK: Supple. No adenopathy or masses. No carotid bruits or JVD CHEST: Clear to auscultation. No respiratory distress. No wheezes rales or rhonchi HEART: Regular rate and rhythm. No murmur heard. Normal peripheral pulses. ABDOMEN: Soft, nontender, nondistended, normal active bowel sounds. EXTREMITIES: Normal range of motion. No edema. SKIN: Warm, dry, no rash. NEURO: No focal deficits. Alert and oriented x3. PSYCH: Normal mood and affect. Course Course Emergency Course: Left eye anesthetized with tetracaine. Fluorescein applied. Linear fluorescein uptake noted from the 3 o'clock position to the 9 o'clock position of the eye Vital Signs Vital signs: Vital Signs Temperature 36.3 C L 08/08/21 23:53 Pulse Rate 84 08/08/21 23:53 Respiratory Rate 20 08/08/21 23:53 Blood Pressure 149/89 H 08/08/21 23:53 Pulse Oximetry 100 08/08/21 23:53 Temperature 36.3 C L 08/08/21 23:53 Pulse Rate 84 08/08/21 23:53 Respiratory Rate 20 08/08/21 23:53 Blood Pressure 149/89 H 08/08/21 23:53 Pulse Oximetry 100 08/08/21 23:53 Discharge Plan Discharge Clinical Impression: Corneal abrasion, left Patient Disposition: Home, Self-Care Condition: Stable Instructions: Antibiotic Form Prescriptions: New polymyxin B s
--- NOTE | 2021-08-09 00:28 | PC.NURSE ---
Pt seen by ELISA Rao. Reports she awoke with grainy feeling in left eye, along with tearing and blurred vision. 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
[2021-08-09] MEDS: FLUORESCEIN SOD 1 MG/STRIP (00:29)
[2021-08-09] MEDS: TETANUS,DIPHTHERIA,AC PERTUSSIS ADULT (0.5 ML) BOOSTRIX IM (00:36)
== END 2021-08-09 00:46 | disposition home or self-care (01) ==
PROVIDERS: Emergency Provider Nurse Practitioner Family; PCP Physician Assistant
DX: S05.02XA Injury of conjunctiva and corneal abrasion without foreign body, left eye, initial encounter (principal); E66.9 Obesity, unspecified; Z68.43 Body mass index [BMI] 50.0-59.9, adult; Z87.891 Personal history of nicotine dependence; Z23 Encounter for immunization; X58.XXXA Exposure to other specified factors, initial encounter
CPT/HCPCS: 90471; 90715; 99283

== ENCOUNTER 2021-10-30 17:16 | Emergency (ER) | payer BC, SELFPAY ==
[2021-10-30] VITALS (9 sets, daily range): BP systolic 125–150; BP diastolic 73–99; PULSE 78–100; RESP 16–22; TEMP 37.2; O2SAT 100
--- NOTE | ~2021-10-30 | XR_ITS ---
EXAMINATION: XR chest 2V Exam Date/Time: 10/30/2021 18:15 CDT HISTORY: sob , bilateral leg edema SINCE THIS AM, NO CARDIAC HX Comparison: 11/03/2020. RESULT: Lines, tubes, and devices: None. Lungs and pleura: Clear. Cardiomediastinal silhouette: Stable cardiomediastinal silhouette. Other: No acute osseous or upper abdominal finding. IMPRESSION: No acute cardiopulmonary process. Reviewed, dictated and finalized at location K.
--- NOTE | 2021-10-30 17:33 | ECG_ITS ---
Measurements Intervals [place] Rate: 90 P: 35 NV: 140 QRS: 55 QRSD: 94 T: 18 QT: 360 QTc: 443 Interpretive Statements SINUS RHYTHM NONSPECIFIC T-WAVE ABNORMALITY COMPARED TO ECG 11/03/2020 13:32:04 NO SIGNIFICANT CHANGE Electronically Signed On 10-31-2021 8:53:03 CDT by Marilyn Mcconnell M.D.
[2021-10-30 17:50] LABS: Basophils Percent Auto 0.4 % (0.2-1.2); Eosinophils Absolute Auto 0.1 K/mm3 (0-0.3); Eosinophils Percent Auto 1.6 % (0-4.4); Hematocrit 35.6 % (37.0-47.0); Hemoglobin 11.2 g/dL (12.0-15.0); Immature Granulocyte Absolute 0.01 K/mm3 (0.00-0.031); Immature Granulocyte Percent A 0.2 % (0-0.5); Lymphocytes Percent Auto 41.9 % (18.3-44.2); Mean Corpuscular HGB Conc 31.5 g/dl (32-36); Mean Corpuscular Hemoglobin 27.6 pg (26-34); Mean Corpuscular Volume 87.7 fl (80-100); Mean Platelet Volume 10.1 fl (7.4-10.4); Monocytes Absolute Auto 0.5 K/mm3 (0.1-0.6); Neutrophils Absolute Auto 2.3 K/mm3 (1.3-6.7); Neutrophils Percent Auto 45.9 % (45.5-73.1); Platelet Count Result 320 k/mm3 (150-375); Red Blood Count 4.06 M/mm3 (4.2-5.4); Red Cell Distribution Width 13.8 % (11.5-14.5)
[2021-10-30 18:01] LABS: Prothrombin Time 12.9 Seconds (11.1-14.7)
[2021-10-30 18:02] LABS: Partial Thromboplastin Time 31.2 SECONDS (22.3-36.8)
[2021-10-30 18:04] LABS: Alanine Aminotransferase 17 U/L (6-35); Albumin Level 4.3 g/dL (3.5-5.1); Alkaline Phosphatase 76 U/L (38-126); Anion Gap 6 mmol/L (8-16); Aspartate Amino Transferase 25 U/L (14-36); Bilirubin,Total 0.2 mg/dL (0.2-1.3); Blood Urea Nitrogen 12 mg/dL (7-17); Calcium 8.8 mg/dL (8.4-10.2); Carbon Dioxide 27 mmol/L (22-30); Chloride 105 mmol/L (98-107); Estimated CRCL calculation 133 ml/min; Estimated Glomerular Filt Rate > 60; Glucose 82 mg/dL (65-110); Potassium 3.6 mmol/L (3.4-5.0); Sodium 138 mmol/L (137-145)
[2021-10-30 18:16] LABS: NT Pro B Type Natriuretic Pept 65 pg/mL (5-100); Troponin I < 0.012 ng/mL (0.000-0.034)
--- NOTE | 2021-10-30 18:47 | ED.EXTPRO ---
HPI - Extremity Problem General Chief complaint: Extremity Problem,Nontraumatic Stated complaint: swelling to feet and legs Time Seen by Provider: 10/30/21 18:44 Source: patient Mode of arrival: ambulatory Limitations: no limitations History of Present Illness HPI Narrative: This is a 30 year old female that presents to the ER for lower extremity edema noted today. Reports swelling to her feet and ankles. Reports she had a brief episode of chest pain earlier while driving. Denies fever, shortness of breath, erythema or warmth of the legs. Related Data Allergies Allergy/AdvReac Type Severity Reaction Status Date / Time aspirin Allergy Intermediate Itching Verified 08/08/21 23:46 acetaminophen Allergy Unknown Unknown Verified 08/08/21 23:46 Penicillins AdvReac Mild Unknown Verified 08/08/21 23:46 feminine pads AdvReac Itching, Uncoded 08/08/21 23:46 redness, burning Review of Systems Review of Systems: CONSTITUTIONAL: Denies fever CARDIOVASCULAR: Reports chest pain, and edema. RESPIRATORY: Denies cough or dyspnea. All systems reviewed & are unremarkable except as noted in HPI and below PMFSH Past Medical History Medical History Bronchitis Depression H/O drainage of abscess HSV (herpes simplex virus) infection Type 1 Obesity Surgical History Surgical History S/P tonsillectomy Family History Family History Father Diabetes mellitus Hypertension Mother Asthma Depression Heart disease Social History Social History Smoking status: Former smoker Tobacco type: cigarettes Second hand tobacco smoke exposure: No Alcohol intake: current Alcohol use details: maybe occasional Substance use: never Gender identity (if verbalized by the patient): Female Sexual Orientation (if Verbalized by the Patient): Straight or Heterosexual Spiritual care concerns: No Exam Narrative: GENERAL: Well-appearing, well-nourished, and in no acute distress. HEAD: Normocephalic, atraumatic. EYES: EOMI. CHEST: Clear to auscultation. No respiratory distress. No wheezes rales or rhonchi HEART: Regular rate and rhythm. No murmur heard. Normal peripheral pulses. EXTREMITIES: Normal range of motion. No edema. SKIN: Warm, dry, no rash. NEURO: No focal deficits. Alert and oriented x3. PSYCH: Normal mood and affect Course Vital Signs Vital signs: Vital Signs Temperature 98.9 F 10/30/21 17:19 Pulse Rate 100 10/30/21 17:19 Respiratory Rate 18 10/30/21 17:19 Blood Pressure 150/99 H 10/30/21 17:19 Pulse Oximetry 100 10/30/21 17:19 Oxygen Delivery Room Air 10/30/21 17:19 Temperature 98.9 F 10/30/21 17:19 Pulse Rate 100 10/30/21 17:19 Respiratory Rate 18 10/30/21 17:19 Blood Pressure 150/99 H 10/30/21 17:19 Pulse Oximetry 100 10/30/21 17:19 Oxygen Delivery Room Air 10/30/21 17:19 MDM - Extremity (Nontraumatic) MDM Narrative Medical decision making narrative: Patient presents to the emergency department for lower extremity edema noted today. She is afebrile nontoxic-appearing. Oxygen saturation is normal on room air. CBC with normocytic anemia with hemoglobin of 11.2. Metabolic panel without concerning findings. EKG without concerning changes and baseline troponin is negative. BNP is not elevated. D-dimer is not elevated. Chest x-ray without acute cardiopulmonary abnormality. There is no concerning edema noted on exam. Patient was updated on case findings. Instructed to follow-up with her primary doctor. She was given warnings to return to the ER Lab Data Attestation: I reviewed the patient's lab results. Result diagrams: 10/30/21 17:44 10/30/21 17:44 Labs: Lab Results 10/30/21 10/30/21 10/30/21 Range/U
[2021-10-30 19:17] LABS: D Dimer 0.46 ug/mL (<0.48)
== END 2021-10-30 20:29 | disposition home or self-care (01) ==
PROVIDERS: Emergency Medicine; Physician Assistant; Emergency Provider Emergency Medicine; PCP Physician Assistant
DX: R60.0 Localized edema (principal); E66.9 Obesity, unspecified; Z68.43 Body mass index [BMI] 50.0-59.9, adult; Z87.891 Personal history of nicotine dependence; R94.31 Abnormal electrocardiogram [ECG] [EKG]
CPT/HCPCS: 36415; 71046; 80053; 83880; 84484; 85025; 85380; 85610; 85730; 93005; 99284

== ENCOUNTER 2022-01-19 17:28 | Emergency (ER) | payer BC, SELFPAY ==
[2022-01-19] VITALS (15 sets, daily range): BP systolic 123–154; BP diastolic 73–94; PULSE 86–100; RESP 16–18; O2SAT 100
[2022-01-19 19:53] LABS: Basophils Percent Auto 0.5 % (0.2-1.2); Eosinophils Absolute Auto 0.1 K/mm3 (0-0.3); Eosinophils Percent Auto 1.7 % (0-4.4); Hematocrit 34.5 % (37.0-47.0); Hemoglobin 10.8 g/dL (12.0-15.0); Immature Granulocyte Absolute 0.01 K/mm3 (0.00-0.031); Immature Granulocyte Percent A 0.2 % (0-0.5); Lymphocytes Absolute Auto 2.55 K/mm3 (0.9-3.2); Lymphocytes Percent Auto 38.5 % (18.3-44.2); Mean Corpuscular HGB Conc 31.3 g/dl (32-36); Mean Corpuscular Hemoglobin 27.3 pg (26-34); Mean Corpuscular Volume 87.3 fl (80-100); Mean Platelet Volume 10.3 fl (7.4-10.4); Monocytes Absolute Auto 0.5 K/mm3 (0.1-0.6); Monocytes Percent Auto 7.4 % (2.6-8.5); Neutrophils Absolute Auto 3.4 K/mm3 (1.3-6.7); Neutrophils Percent Auto 51.7 % (45.5-73.1); Platelet Count Result 369 k/mm3 (150-375); Red Blood Count 3.95 M/mm3 (4.2-5.4); Red Cell Distribution Width 13.4 % (11.5-14.5); White Blood Count 6.6 K/mm3 (4.5-10.0)
[2022-01-19 20:02] LABS: RBC Urine >75 /hpf (0-2); Squamous Epithelial Cell Urine Few /hpf (Few)
[2022-01-19 20:03] LABS: Add Urine Microscopic? YES; Appearance Urine Cloudy (Clear); Bilirubin Urine 1+ (Negative); Blood Urine 3+ (Negative); Color Urine Red (Yellow); Glucose Urine UA Negative (Negative); Ketones Urine Trace mg/dL (Negative); Leukocyte Esterase Ur Negative LEU/UL (Negative); Nitrate Urine Negative (Negative); Protein Urine 2+ mg/dL (Negative)
[2022-01-19 20:13] LABS: Alanine Aminotransferase 17 U/L (6-35); Albumin Level 4.4 g/dL (3.5-5.1); Alkaline Phosphatase 98 U/L (38-126); Anion Gap 9 mmol/L (8-16); Aspartate Amino Transferase 41 U/L (14-36); Bilirubin,Total 0.3 mg/dL (0.2-1.3); Blood Urea Nitrogen 10 mg/dL (7-17); Calcium 8.6 mg/dL (8.4-10.2); Carbon Dioxide 27 mmol/L (22-30); Chloride 106 mmol/L (98-107); Estimated CRCL calculation 184 ml/min; Estimated Glomerular Filt Rate > 60; Glucose 91 mg/dL (65-110); Potassium 4.1 mmol/L (3.4-5.0); Sodium 142 mmol/L (137-145)
[2022-01-19] MEDS: KETOROLAC 30 MG/ML VIAL (*BKC) IV PUSH (20:54)
--- NOTE | 2022-01-19 23:15 | ED.FEMALEGU ---
HPI - Female Genitourinary General Chief complaint: Vaginal Bleeding Stated complaint: heavy bleeding, light headed Time Seen by Provider: 01/19/22 18:38 Source: patient Mode of arrival: ambulatory Limitations: no limitations History of Present Illness HPI Narrative: 31-year-old female presents today with complaints of heavy menstrual bleeding and cramping. Patient states her period has been going on since the . Patient currently has an OB appointment on Monday but states she could not wait that long. Patient states that she has gone through 3 pads a day every day since the . Patient states she might have went through 6 pads today but they are not saturated. Patient does have a history of fibroids. Patient denies suspicion for STIs. Related Data Allergies Allergy/AdvReac Type Severity Reaction Status Date / Time aspirin Allergy Intermediate Itching Verified 01/19/22 17:55 acetaminophen Allergy Unknown Unknown Verified 01/19/22 17:55 Penicillins AdvReac Mild Unknown Verified 01/19/22 17:55 feminine pads AdvReac Itching, Uncoded 01/19/22 17:55 redness, burning Review of Systems Review of Systems: CONSTITUTIONAL: Denies fever, chills, or sweats. CARDIOVASCULAR: Denies chest pain, palpitations, or edema. RESPIRATORY: Denies cough or dyspnea. GASTROINTESTINAL: Abdominal cramping. Denies abdominal nausea, vomiting, or diarrhea. GENITOURINARY: Vaginal bleeding. Denies dysuria or hematuria. MUSCULOSKELETAL: Denies back pain, joint pain, or myalgia. NEUROLOGIC: Denies headache, numbness, dizziness, or weakness. PSYCHIATRIC: Denies anxiety or depression. [facility] Past Medical History Medical History Bronchitis Depression H/O drainage of abscess HSV (herpes simplex virus) infection Type 1 Obesity Surgical History Surgical History S/P tonsillectomy Family History Family History Father Diabetes mellitus Hypertension Mother Asthma Depression Heart disease Social History Social History Smoking status: Former smoker Tobacco type: cigarettes Second hand tobacco smoke exposure: No Alcohol intake: current Alcohol use details: maybe occasional Substance use: never Gender identity (if verbalized by the patient): Female Sexual Orientation (if Verbalized by the Patient): Straight or Heterosexual Spiritual care concerns: No Exam Narrative: GENERAL: Well-appearing, well-nourished, and in no acute distress. HEAD: Normocephalic, atraumatic. CHEST: Clear to auscultation. No respiratory distress. No wheezes rales or rhonchi HEART: Regular rate and rhythm. No murmur heard. Normal peripheral pulses. ABDOMEN: Soft, nontender, nondistended, normal active bowel sounds. : Pelvic exam completed with motor inspection mechanic. Moderate amount of blood to the vaginal vault. No lacerations noted cervix not friable. EXTREMITIES: Normal range of motion. No edema. SKIN: Warm, dry, no rash. NEURO: No focal deficits. Alert and oriented x3. PSYCH: Normal mood and affect. Course Course Emergency Course: Discussed labs with patient. Patient without any pain after Toradol. Patient has planned follow-up on Monday with OB. Will discharge patient and instructed to keep her follow-up appointment on Monday. She is aware to return with any new or worsening symptoms. Vital Signs Vital signs: Vital Signs Pulse Rate 89 01/19/22 17:48 Respiratory Rate 16 01/19/22 17:48 Blood Pressure 146/81 H 01/19/22 17:48 Pulse Oximetry 100 01/19/22 17:48 Pulse Rate 86 01/19/22 22:31 Respiratory Rate 18 01/19/22 22:31 Blood Pressure 132/94 H 01/19/22 22:31 Pulse Oximetry 100 01/19/22 22:31 MDM - Female Genitourinary MDM Narrative Medical decision making narrative: 31-year-old f
== END 2022-01-19 22:33 | disposition home or self-care (01) ==
PROVIDERS: Emergency Provider Nurse Practitioner Family; PCP Physician Assistant
DX: N93.8 Other specified abnormal uterine and vaginal bleeding (principal); E66.9 Obesity, unspecified; Z68.43 Body mass index [BMI] 50.0-59.9, adult; Z87.891 Personal history of nicotine dependence
CPT/HCPCS: 36415; 80053; 81001; 81025; 85025; 96374; 99284; J1885

== ENCOUNTER 2022-07-13 23:59 | Emergency (ER) | payer BC, SELFPAY ==
[2022-07-14 00:06] VITALS: BP 139/90; PULSE 105; RESP 20; TEMP 36.5; O2SAT 100
[2022-07-14 00:55] LABS: Influenza A QL RT-PCR Negative (Negative); Influenza B QL RT-PCR Negative (Negative); SARS-CoV-2 RNA PCR Negative
== END 2022-07-14 02:45 | disposition left against medical advice (07) ==
PROVIDERS: Emergency Provider Emergency Medicine; PCP Physician Assistant
DX: R11.10 Vomiting, unspecified (principal); Z20.822 Contact with and (suspected) exposure to COVID-19
CPT/HCPCS: 87636; 99199

== ENCOUNTER 2022-07-14 16:28 | Emergency (ER) | payer BC, SELFPAY ==
[2022-07-14 16:31] VITALS: BP 143/91; PULSE 96; RESP 17; TEMP 36.3; O2SAT 100
--- NOTE | 2022-07-14 19:51 | PC.NURSE ---
Triage note reviewed and confirmed. First encounter w/ pt, pt resting comfortably in bed. Updated pt on plan of care. Awaiting ED provider. NAD.
[2022-07-14 20:06] VITALS: BP 138/69; PULSE 92; RESP 18; TEMP 37.2; O2SAT 99
--- NOTE | 2022-07-14 20:28 | ED.GENADULT ---
HPI - General Adult General Chief complaint: Unspecified Stated complaint: left sided facial pain - seen in this ER yesterday Time Seen by Provider: 07/14/22 19:40 History of Present Illness HPI narrative: Patient is a 31-year-old female presenting with a nasal mass. Patient states that she recently had an upper respiratory infection. States that she has been improving until yesterday when she noticed swelling on the left side of her nose. States that she kept placing tissue in her nostril to control drainage but it kept falling out. This led to her examining her nose and she noticed a mass in the left nostril. Denies recent trauma. She denies chest pain, shortness of breath, lightheadedness, abdominal pain, nausea or vomiting, diarrhea, leg swelling. Related Data Allergies Allergy/AdvReac Type Severity Reaction Status Date / Time aspirin Allergy Intermediate Itching Verified 07/14/22 16:29 acetaminophen Allergy Unknown Unknown Verified 07/14/22 16:29 Penicillins AdvReac Mild Unknown Verified 07/14/22 16:29 feminine pads AdvReac Itching, Uncoded 07/14/22 16:29 redness, burning Review of Systems Review of Systems: All systems reviewed & are unremarkable except as noted in HPI and below PMFSH Past Medical History Medical History Bronchitis Depression H/O drainage of abscess HSV (herpes simplex virus) infection Type 1 Obesity Surgical History Surgical History S/P tonsillectomy Family History Family History Father Diabetes mellitus Hypertension Mother Asthma Depression Heart disease Social History Social History Smoking status: Former smoker Tobacco type: cigarettes Second hand tobacco smoke exposure: No Alcohol intake: current Alcohol use details: maybe occasional Substance use: never Living arrangements: with family Gender identity (if verbalized by the patient): Female Sexual Orientation (if Verbalized by the Patient): Straight or Heterosexual Spiritual care concerns: No Exam Narrative: GENERAL: Well-appearing, well-nourished, and in no acute distress. HEAD: Normocephalic, atraumatic. EYES: PERRLA and EOMI. ENT: polyp like structure in left nostril with thick nasal secretions, nontender, no bleeding, no septal hematoma; R nostril appears normal NECK: Supple. CHEST: Clear to auscultation. No respiratory distress. HEART: Regular rate and rhythm. ABDOMEN: Nondistended EXTREMITIES: Normal range of motion. No edema. SKIN: Warm, dry, no rash. NEURO: No focal deficits. Alert and oriented x3. PSYCH: Normal mood and affect. Course Vital Signs Vital signs: Vital Signs Temperature 97.3 F L 07/14/22 16:31 Pulse Rate 96 07/14/22 16:31 Respiratory Rate 17 07/14/22 16:31 Blood Pressure 143/91 H 07/14/22 16:31 Pulse Oximetry 100 07/14/22 16:31 Oxygen Delivery Room Air 07/14/22 16:31 Temperature 98.9 F 07/14/22 20:06 Pulse Rate 92 07/14/22 20:06 Respiratory Rate 18 07/14/22 20:06 Blood Pressure 138/69 07/14/22 20:06 Pulse Oximetry 99 07/14/22 20:06 Oxygen Delivery Room Air 07/14/22 16:31 Medical Decision Making MDM Narrative Medical decision making narrative: Patient is a 31-year-old female presenting with nasal mass and nasal congestion. Vitals within normal limits. Exam is remarkable for the above. Suspect this is a nasal polyp. It is rather large and seems to protrude from the left nare. Do not think that she would tolerate topical glucocorticoids very well given the obstruction it causes so will start a short course of oral steroids. We will also start her on nasal spray. Advised that she follow-up closely with ENT. Appropriate return precautions given. Patient voiced understanding and is agre
[2022-07-14] MEDS: predniSONE 20 MG TABLET 40 MG PO (20:52)
[2022-07-14] MEDS: IBUPROFEN 400 MG TABLET 800 MG PO (21:12)
[2022-07-14 21:17] VITALS: BP 139/81; PULSE 79; RESP 18; TEMP 36.6; O2SAT 99
== END 2022-07-14 21:18 | disposition home or self-care (01) ==
PROVIDERS: Emergency Provider Emergency Medicine; PCP Physician Assistant
DX: J33.9 Nasal polyp, unspecified (principal); R09.81 Nasal congestion; E66.9 Obesity, unspecified; Z68.43 Body mass index [BMI] 50.0-59.9, adult; Z87.891 Personal history of nicotine dependence
CPT/HCPCS: 99283; A9270; J7512

== ENCOUNTER 2022-08-02 16:17 | Emergency (ER) | payer BC, SELFPAY ==
[2022-08-02 16:21] VITALS: BP 114/81; PULSE 92; RESP 16; TEMP 36.3; O2SAT 100
--- NOTE | 2022-08-02 16:47 | ED.UPPEXIN ---
HPI - Extremity Injury (Upper) General Chief Complaint: Extremity Injury, Upper Stated Complaint: Thumb Lt Hand Time Seen by Provider: 08/02/22 16:47 Source: patient Mode of arrival: ambulatory Limitations: no limitations History of Present Illness HPI narrative: 31-year-old female presents with complaint of pain to left thumb with drainage starting this morning. Patient reports history of nail biting. States she no longer bites her nails. no recent manicures. No history of paronychia. All systems reviewed and negative except as noted above. Related Data Home Medications Medication Instructions Recorded Confirmed drospirenone 3 mg-estetrol 14.2 mg tablet PO 08/02/22 (28) tablet ([employer]stell[facility]) Allergies Allergy/AdvReac Type Severity Reaction Status Date / Time aspirin Allergy Intermediate Itching Verified 08/02/22 16:40 acetaminophen Allergy Unknown Unknown Verified 07/14/22 16:29 Penicillins AdvReac Mild Unknown Verified 08/02/22 16:40 feminine pads AdvReac Itching, Uncoded 07/14/22 16:29 redness, burning Review of Systems Review of Systems: CONSTITUTIONAL: Denies fever, chills, or sweats. EYES: Denies visual changes, redness, or discharge. ENT: Denies rhinorrhea, congestion, sore throat, or otalgia. CARDIOVASCULAR: Denies chest pain, palpitations, or edema. RESPIRATORY: Denies cough or dyspnea. GASTROINTESTINAL: Denies abdominal pain, nausea, vomiting, or diarrhea. GENITOURINARY: Denies dysuria or hematuria. SKIN: Reports redness, swelling, drainage to cuticle of left thumb. MUSCULOSKELETAL: Denies back pain, joint pain, or myalgia. NEUROLOGIC: Denies headache, numbness, or weakness. PSYCHIATRIC: Denies anxiety or depression. All other systems reviewed are negative, except as documented in HPI. [facility] Past Medical History Medical History Bronchitis Depression H/O drainage of abscess HSV (herpes simplex virus) infection Type 1 Obesity Surgical History Surgical History S/P tonsillectomy Family History Family History Father Diabetes mellitus Hypertension Mother Asthma Depression Heart disease Social History Social History Smoking status: Former smoker Tobacco type: cigarettes Second hand tobacco smoke exposure: No Alcohol intake: current Alcohol use details: maybe occasional Substance use: never Living arrangements: with family Gender identity (if verbalized by the patient): Female Sexual Orientation (if Verbalized by the Patient): Straight or Heterosexual Spiritual care concerns: No Comments At time of signature, agree with nursing past medical, surgical, social and family history. There is no relevant family history pertinent to the presenting complaint. Exam Narrative: GENERAL: This is a well-nourished, well-developed patient, in no apparent distress. HEAD: normocephalic, atraumatic. EYES: PERRL. Sclera clear/white. Vision is grossly intact. EARS: External ears normal NOSE: External nose normal NECK: Neck supple, non-tender without lymphadenopathy, masses or thyromegaly. CARDIOVASCULAR: Regular rate and rhythm without murmurs, gallops, or rubs. RESPIRATORY: Clear to auscultation. Breath sounds equal bilaterally. No wheezes, rales, or rhonchi. SKIN: warm, Dry, intact with no suspicious lesions or rash, good texture and turgor. Erythema, swelling to the cuticle of left thumb. No drainage. No fluctuance. NEURO: awake, alert, and oriented to person, place and time. There were no obvious focal neurologic abnormalities. EXTREMITIES: No joint tenderness, effusion, or edema noted. Course Course Level of Care: Express Care Visit Vital Signs Vital signs: Vital Signs Temperature 36.3 C L 08/02/22 16:21 Pulse R
== END 2022-08-02 17:11 | disposition home or self-care (01) ==
PROVIDERS: Emergency Provider Nurse Practitioner Family; PCP Physician Assistant
DX: L03.012 Cellulitis of left finger (principal); Z87.891 Personal history of nicotine dependence
CPT/HCPCS: 99213; G0463

== ENCOUNTER 2022-10-07 17:49 | Emergency (ER) | payer BC, SELFPAY ==
--- NOTE | 2022-10-07 18:14 | ED.FEMALEGU ---
HPI - Female Genitourinary General Chief complaint: Urogenital-Female Stated complaint: uti symptoms Time Seen by Provider: 10/07/22 18:15 Source: patient Mode of arrival: ambulatory Limitations: no limitations History of Present Illness HPI Narrative: 31-year-old female presents with complaint of urinary frequency, dysuria for the past 7-10 days. Reports that she gets urinary tract infections often . Denies nausea vomiting diarrhea. Afebrile. No abdominal or back pain. No concern for STI today. All systems reviewed and negative except as noted above. Related Data Home Medications Medication Instructions Recorded Confirmed ferrous sulfate 325 mg (65 mg 325 mg PO DAILY 10/07/22 10/07/22 iron) tablet (FeroSul) sertraline 50 mg tablet 50 mg PO DAILY 10/07/22 10/07/22 Allergies Allergy/AdvReac Type Severity Reaction Status Date / Time aspirin Allergy Intermediate Itching Verified 10/07/22 18:39 acetaminophen Allergy Unknown Unknown Verified 10/07/22 18:39 Penicillins AdvReac Mild Unknown Verified 10/07/22 18:39 feminine pads AdvReac Itching, Uncoded 10/07/22 18:39 redness, burning Review of Systems Review of Systems: CONSTITUTIONAL: Denies fever, chills, or sweats. EYES: Denies visual changes, redness, or discharge. ENT: Denies rhinorrhea, congestion, sore throat, or otalgia. CARDIOVASCULAR: Denies chest pain, palpitations, or edema. RESPIRATORY: Denies cough or dyspnea. GASTROINTESTINAL: Denies abdominal pain, nausea, vomiting, or diarrhea. GENITOURINARY: Reports dysuria, frequency, hematuria. SKIN: Denies rash or itching. MUSCULOSKELETAL: Denies back pain, joint pain, or myalgia. NEUROLOGIC: Denies headache, numbness, or weakness. PSYCHIATRIC: Denies anxiety or depression. All other systems reviewed are negative, except as documented in HPI. [facility] Past Medical History Medical History Bronchitis Depression H/O drainage of abscess HSV (herpes simplex virus) infection Type 1 Obesity Surgical History Surgical History S/P tonsillectomy Family History Family History Father Diabetes mellitus Hypertension Mother Asthma Depression Heart disease Social History Social History Smoking status: Former smoker Tobacco type: cigarettes Second hand tobacco smoke exposure: No Alcohol intake: current Alcohol use details: maybe occasional Substance use: never Living arrangements: with family Gender identity (if verbalized by the patient): Female Sexual Orientation (if Verbalized by the Patient): Straight or Heterosexual Spiritual care concerns: No Comments At time of signature, agree with nursing past medical, surgical, social and family history. There is no relevant family history pertinent to the presenting complaint. Exam Narrative: GENERAL: This is a well-nourished, well-developed patient, in no apparent distress. HEAD: normocephalic, atraumatic. EYES: PERRL. Sclera clear/white. Vision is grossly intact. EARS: External ears normal NOSE: External nose normal NECK: Neck supple, non-tender without lymphadenopathy, masses or thyromegaly. CARDIOVASCULAR: Regular rate and rhythm without murmurs, gallops, or rubs. RESPIRATORY: Clear to auscultation. Breath sounds equal bilaterally. No wheezes, rales, or rhonchi. SKIN: warm, Dry, intact with no suspicious lesions or rash, good texture and turgor. NEURO: awake, alert, and oriented to person, place and time. There were no obvious focal neurologic abnormalities. EXTREMITIES: No joint tenderness, effusion, or edema noted. Course Course Level of Care: Express Care Visit Vital Signs Vital signs: Vital Signs Temperature 37.0 C 10/07/22 18:16 Pulse Rate 79 10/07/22
[2022-10-07 18:16] VITALS: BP 143/92; PULSE 79; RESP 16; TEMP 37; O2SAT 100
== END 2022-10-07 20:36 | disposition home or self-care (01) ==
PROVIDERS: Emergency Provider Nurse Practitioner Family; PCP Physician Assistant
DX: N39.0 Urinary tract infection, site not specified (principal); Z87.891 Personal history of nicotine dependence; F32.A Depression, unspecified; E66.9 Obesity, unspecified; Z68.43 Body mass index [BMI] 50.0-59.9, adult
CPT/HCPCS: 81003; 87077; 87086; 87186; 99213; G0463